=== PATIENT | male | born 1975 | race American Indian/Alaskan Native ===

== ENCOUNTER 2020-10-25 13:20 | Observation (INO) | payer MEDICARE ==
--- NOTE | 2020-10-25 14:35 | XRay Report ---
CHEST 2 VIEWS INDICATION / CLINICAL INFORMATION: cough. COMPARISON: None available. FINDINGS: SUPPORT DEVICES: None. HEART / MEDIASTINUM: No significant abnormality. LUNGS / PLEURA: Focal airspace disease in the right perihilar region No pneumothorax. ADDITIONAL FINDINGS: No significant additional findings. IMPRESSION: Focal airspace disease is seen in the right perihilar region Signer Name: Venkat Patricio MD FACLo Signed: 10/25/2020 2:30 PM Workstation Name: [id number]
[2020-10-25] MEDS ORDERED: ACETAMINOPHEN 325 MG TAB PO PRN (16:22)
[2020-10-25] MEDS ORDERED: SODIUM CHLORIDE 0.9% 1000 ML IV SOLN IV ONE (16:22)
--- NOTE | 2020-10-25 16:27 | Emergency Department Report ---
ED Fever HPI - General Chief Complaint: Fever Stated Complaint: COLD SYMPTOMS/CHILLS Time Seen by Provider: 10/25/20 13:33 ED Review of Systems ROS: Stated complaint: COLD SYMPTOMS/CHILLS Other details as noted in HPI ED Past Medical Hx - Social History Smoking Status: Current Some Day Smoker Substance Use Type: None ED Physical Exam - General Limitations: No Limitations ED Course Vital Signs 10/25/20 13:33 Temperature 102.2 F H Pulse Rate 115 H Respiratory 26 H Rate Blood Pressure 168/109 O2 Sat by Pulse 96 Oximetry Critical care attestation.: If time is entered above; I have spent that time in minutes in the direct care of this critically ill patient, excluding procedure time. ED Disposition Condition: Stable
--- NOTE | 2020-10-25 16:29 | Event Note ---
ED Screening Note ED Screening Note: 45-year-old -[place] male presents emerged department complaining of cough congestion coryza and fever sensation off and on for the past week presents emerged department for further valuation and treatment options. There is suspicion for for the coronavirus as the symptoms are vague and fluctuated His examination shows some rhonchi at to his right. Chest x-ray was obtained did show a focal deficit that coupled with his his vital signs will need to do a septic work-up This initial assessment/diagnostic orders/clinical plan/treatment(s) is/are subject to change based on patients health status, clinical progression and re- assessment by fellow clinical providers in the ED. Further treatment and workup at subsequent clinical providers discretion. Patient/guardian urged not to elope from the ED as their condition may be serious if not clinically assessed and managed. Initial orders include: Septic evaluation
[2020-10-25 17:28] LABS: Basophils # (Auto) 0.1 K/mm3 (0.0-0.1); Basophils % (Auto) 0.7 % (0.0-1.8); Eosinophils # (Auto) 0.3 K/mm3 (0.0-0.4); Eosinophils % (Auto) 3.2 % (0.0-4.3); Hematocrit 42.1 % (35.5-45.6); Hemoglobin 14.6 gm/dl (11.8-15.2); Lymphocytes # (Auto) 1.4 K/mm3 (1.2-5.4); Lymphocytes % (Auto) 13.4 % (13.4-35.0); Mean Corpuscular HGB Conc 35 % (32-34); Mean Corpuscular Volume 86 fl (84-94); Platelet Count 183 K/mm3 (140-440); Red Blood Count 4.88 M/mm3 (3.65-5.03); Red Cell Distribution Width 12.4 % (13.2-15.2)
[2020-10-25 17:53] LABS: Alanine Aminotransferase 19 units/L (7-56); Albumin 3.7 g/dL (3.9-5); BUN/Creatinine Ratio 8; Blood Urea Nitrogen 12 mg/dL (9-20); Calcium 8.5 mg/dL (8.4-10.2); Hemolysis Index 0
[2020-10-25] MEDS: HYDROmorphone 1 MG/1 ML INJ IV PRN (19:30)
[2020-10-25] MEDS ORDERED: SODIUM CHLORIDE 0.9% 1000 ML 3,000 ML ONE (19:37)
[2020-10-25] MEDS: AZITHROMYCIN/NS 500 MG/250 ML 500 MG/250 ML BAG IV SCH (19:37)
[2020-10-25] MEDS: cefTRIAXone/NS 2 GM/100 ML 2 GM/100 ML BAG IV SCH (19:37)
[2020-10-25] MEDS ORDERED: dexAMETHasone 4 MG/ML VIAL IV ONE (22:58)
--- NOTE | 2020-10-25 23:03 | Emergency Department Report ---
ED Fever HPI - General Chief Complaint: Fever Stated Complaint: COLD SYMPTOMS/CHILLS PUI?: No Time Seen by Provider: 10/25/20 22:53 Source: patient Exam Limitations: no limitations - History of Present Illness Initial Comments: Patient is a 45-year-old male that presents emergency room with complaints of cough, congestion, fever, body aches and chills, nausea and vomiting. Patient states the cough congestion been going on for 2 months. Patient states he was seen at [facility] 4 weeks ago and was given a cough syrup and his Covid was negative. Patient states he has not followed up with a primary care. Patient states he does not know the provider. Patient dates he has not had antibiotics in these 2 months. Patient states then 5 days ago he developed body aches, shortness of breath, nausea, vomiting, fever and a productive cough. Patient states the productive cough is a yellow sputum. Patient denies diarrhea. Patient denies loss of smell. Patient denies loss of taste. Patient denies chest pain. Patient states his body aches are 6 out of 10. Patient states his body aches are better with rest and worse with movement and exertion. Patient states he is taking [id number] cold remedies and Tylenol and ibuprofen. Patient denies recent travel. Patient denies recent international travel. Patient denies exposure to the novel coronavirus. Patient denies sick contacts. Patient denies diarrhea. Patient denies coming in contact with anybody with symptoms of the novel coronavirus. Timing/Duration: constant Fever Severity/Quality: greater than 102 F Fever Therapy EXPERIMENTAL TECHNICIAN: cold remedies, Ibuprofen, Tylenol Associated Symptoms: cough, muscle aches, nausea/vomiting, shortness of breath. denies: abdominal pain, chest pain, confusion, diaphoresis, headache, rash, sore throat, stiff neck, syncope, weakness ED Review of Systems ROS: Stated complaint: COLD SYMPTOMS/CHILLS Other details as noted in HPI Constitutional: chills, fever, malaise. denies: diaphoresis, weakness Eyes: denies: eye pain, eye discharge, vision change ENT: denies: ear pain, throat pain Respiratory: see HPI, cough, shortness of breath. denies: wheezing Cardiovascular: denies: chest pain, palpitations Endocrine: no symptoms reported Gastrointestinal: nausea, vomiting. denies: abdominal pain, diarrhea Genitourinary: denies: urgency, dysuria Musculoskeletal: denies: back pain, joint swelling, arthralgia Skin: denies: rash, lesions Neurological: denies: headache, weakness, paresthesias Psychiatric: denies: anxiety, depression Hematological/Lymphatic: denies: easy bleeding, easy bruising ED Past Medical Hx - Past Medical History Previous Medical History?: No - Surgical History Past Surgical History?: No - Family History Family history: no significant - Social History Smoking Status: Current Some Day Smoker Substance Use Type: None ED Physical Exam - General Limitations: No Limitations General appearance: alert, in no apparent distress - Head Head exam: Present: atraumatic, normocephalic - Eye Eye exam: Present: normal appearance - ENT ENT exam: Present: mucous membranes moist - Neck Neck exam: Present: normal inspection - Respiratory Respiratory exam: Present: normal lung sounds bilaterally. Absent: respiratory distress - Cardiovascular Cardiovascular Exam: Present: regular rate, normal rhythm. Absent: systolic murmur, diastolic murmur, rubs, gallop - GI/Abdominal GI/Abdominal exam: Present: soft, normal bowel sounds. Absent: distended, tenderness, guarding - Rectal Rectal exam: Present: deferred - Extremities Exam Extremities exam: Present: normal inspection - Back Exam Back exam: Present: normal inspection - Neurological Exam Neurological exam: Present: alert, oriented X3 - Psychiatric Psychiatric exam: Present: normal affect, normal mood - Skin Skin exam: Present: warm, dry, intact, normal color. Absent: rash ED Course Vital Signs 10/25/20 13:33 Temperature 102.2 F H Pulse Rate 115 H Respiratory 26 H Rate Blood Pressure 168/109 O2 Sat by Pulse 96 Oximetry - Reevaluation(s) Reevaluation #1: After initial valuation, I ambulated the patient. The patient became hypoxic. . Patient dropped to 88. Patient's initial saturation was 94%. Patient placed in a private room and connected to a laboratory monitor. 10/25/20 23:05 Reevaluation #2: I discussed all results with patient. I discussed plan of care with patient. Patient agrees with plan of care and admission. Patient to be admitted to the hospitalist service. 10/25/20 23:17 ED Medical Decision Making - Lab Data Result diagrams: 10/25/20 16:30 10/25/20 16:30 - Radiology Data Radiology results: report reviewed, image reviewed interpreted by me: Chest x-ray: Bilateral pneumonia, no pneumothorax, no foreign body, no osseous findings. CHEST 2 VIEWS INDICATION / CLINICAL INFORMATION: cough. COMPARISON: None available. FINDINGS: SUPPORT DEVICES: None. HEART / MEDIASTINUM: No significant abnormality. LUNGS / PLEURA: Focal airspace disease in the right perihilar region No pneumot horax. ADDITIONAL FINDINGS: No significant additional findings. IMPRESSION: Focal airspace disease is seen in the right perihilar region - Medical Decision Making Patient is a 45-year-old male that presents emergency room with complaints of cough, congestion, nausea, vomiting, fever, body aches, shortness of breath. Patient had labs done which were essentially unremarkable except for dehydration on his chemistry. Patient had chest x-ray which showed bilateral pneumonia. After the results were done and initial evaluation was done, I ambulated the patient and the patient became hypoxic early in ambulation. Patient was then transferred to a private room and placed on a laboratory monitor. Patient placed on oxygen. Patient given antibiotics and fluids early in the ER stay. Patient was then given Decadron. Patient meets criteria for admission. Patient admitted to the hospital service for further evaluation and treatment. - Differential Diagnosis Fever, Covid, URI, pneumonia, cough, S OB Critical Care Time: Yes Critical care time in (mins) excluding proc time.: 35 Critical care attestation.: If time is entered above; I have spent that time in minutes in the direct care of this critically ill patient, excluding procedure time. Critical Care Time: 35 minutes ED Disposition Clinical Impression: Person under investigation for COVID-19, Cough, Hypoxia, SOB (shortness of breath), SIRS (systemic inflammatory response syndrome) Respiratory failure Qualifiers: Chronicity: acute Respiratory failure complication: hypoxia Qualified Code(s): J96.01 - Acute respiratory failure with hypoxia Pneumonia Qualifiers: Pneumonia type: due to unspecified organism Laterality: bilateral Lung location: unspecified part of lung Qualified Code(s): J18.9 - Pneumonia, unspecified organism Disposition: OP ADMIT IP TO THIS HOSP Is pt being admited?: Yes Does the pt Need Aspirin: No Condition: Critical Instructions: Bacterial Pneumonia (ED) Time of Disposition: 23:17
[2020-10-26] MEDS ORDERED: MORPHINE 2 MG/1 ML INJ IV PRN (00:56)
[2020-10-26] MEDS ORDERED: MAGNESIUM HYDROXIDE (MOM) ORAL LIQD UDC PO PRN (00:56)
[2020-10-26] MEDS ORDERED: ONDANSETRON 4 MG/2 ML INJ IV PRN (00:56)
[2020-10-26] MEDS ORDERED: ACETAMINOPHEN 325 MG TAB PO PRN (00:56)
[2020-10-26] MEDS: guaiFENesin 100 MG/5 ML ORAL LIQD PO PRN ×2 (01:04→21:33)
[2020-10-26] MEDS: HYDROmorphone 1 MG/1 ML INJ IV PRN (01:04)
--- NOTE | 2020-10-26 01:06 | History and Physical Report ---
History of Present Illness Date of examination: 10/26/20 Date of admission: 10/25/20 23:18 Chief complaint: Cough Shortness of Breath History of present illness: 45-year-old -[place] male presenting to the emergency room today complaining of cough, fever, generalized body aches and pain, nausea and vomiting which has been ongoing for the past few days. Patient indicates that he has had some cough with some congestion for about 8 weeks. He was seen at [facility] few weeks ago and given some cough syrup without any significant improvement. His Covid test at that time also was said to be negative. Over the past few days patient has been having generalized body aches and pain, cough productive of some yellowish sputum, nausea and vomiting and shortness of breath. He denies any chest pain, no abdominal pain and no diarrhea. Patient denies any sick contacts and no recent travel, denies any contact with anyone with COVID-19. He has taken some [id number] pain medication including Tylenol and ibuprofen without any significant improvement Work-up in the emergency room today reveals:Focal airspace disease in the right perihilar region Patient is being admitted with pneumonia and will also rule out COVID-19. Past History Past Medical History: No medical history Past Surgical History: No surgical history Social history: smoking (Current daily smoker) Family history: no significant family history Medications and Allergies Allergies Allergy/AdvReac Type Severity Reaction Status Date / Time No Known Allergies Allergy Verified 10/25/20 13:36 Active Meds: Active Medications Acetaminophen (Acetaminophen 325 Mg Tab) 650 mg PO Q6H PRN PRN Reason: Pain, Mild (1-3) Acetaminophen (Acetaminophen 325 Mg Tab) 650 mg PO Q4H PRN PRN Reason: Pain MILD(1-3)/Fever >100.5/ECHOLS Enoxaparin Sodium (Enoxaparin 40 Mg/0.4 Ml Inj) 40 mg SUB-Q QDAY@2200 JURGEN; Protocol Guaifenesin (Guaifenesin 100 Mg/5 Ml Oral Liqd) 200 mg PO Q4H PRN PRN Reason: Cough Hydromorphone HCl (Hydromorphone 1 Mg/1 Ml Inj) 0.25 mg IV Q4H PRN PRN Reason: Pain, Moderate (4-6) Last Admin: 10/25/20 19:30 Dose: 0.25 mg Documented by: Ceftriaxone Sodium (Rocephin/Ns 2 Gm/100 Ml) 2 gm in 100 mls @ 200 mls/hr IV Q24H JURGEN; Protocol Last Admin: 10/25/20 19:37 Dose: 200 mls/hr Documented by: Azithromycin (Zithromax/Ns) 500 mg in 250 mls @ 250 mls/hr IV Q24H JURGEN; Protocol Last Admin: 10/25/20 19:37 Dose: 250 mls/hr Documented by: Magnesium Hydroxide (Magnesium Hydroxide (Mom) Oral Liqd Udc) 30 ml PO Q4H PRN PRN Reason: Constipation Morphine Sulfate (Morphine 2 Mg/1 Ml Inj) 2 mg IV Q4H PRN PRN Reason: Pain, Moderate (4-6) Ondansetron HCl (Ondansetron 4 Mg/2 Ml Inj) 4 mg IV Q8H PRN PRN Reason: Nausea And Vomiting Sodium Chloride (Sodium Chloride 0.9% 10 Ml Flush Syringe) 10 ml IV BID JURGEN Sodium Chloride (Sodium Chloride 0.9% 10 Ml Flush Syringe) 10 ml IV PRN PRN PRN Reason: LINE FLUSH Review of Systems Constitutional: fever, chills Ears, nose, mouth and throat: nasal congestion, no sore throat Cardiovascular: no chest pain, no palpitations Respiratory: cough, shortness of breath Gastrointestinal: nausea, vomiting, no abdominal pain, no diarrhea Genitourinary Male: no dysuria, no hematuria, no flank pain, no nocturia Musculoskeletal: no neck pain, no low back pain Integumentary: no rash, no pruritis Neurological: no headaches, no confusion Psychiatric: no anxiety, no depression Exam - Constitutional Vitals: Temp Pulse Resp BP Pulse Ox 99.8 F H 91 H 24 156/87 99 10/26/20 00:29 10/26/20 00:29 10/26/20 00:29 10/26/20 00:29 10/26/20 00:29 General appearance: Present: no acute distress, well-nourished - EENT Eyes: Present: PERRL, EOM intact. Absent: scleral icterus ENT: hearing intact, clear oral mucosa, dentition normal - Neck Neck: Present: supple, normal ROM - Respiratory Respiratory effort: normal Respiratory: right: diminished - Cardiovascular Rhythm: regular Heart Sounds: Present: S1 & S2. Absent: gallop, systolic murmur, diastolic murmur, rub, click - Extremities Extremities: no ischemia, pulses intact, pulses symmetrical, No edema, normal temperature, normal color, Full ROM Peripheral Pulses: within normal limits - Abdominal General gastrointestinal: Present: soft, non-tender, non-distended, normal bowel sounds. Absent: mass - Integumentary Integumentary: Present: clear, warm, dry. Absent: rash - Musculoskeletal Musculoskeletal: strength equal bilaterally - Psychiatric Psychiatric: appropriate mood/affect, intact judgment & insight, memory intact, cooperative - Neurologic Neurologic: CNII-XII intact, no focal deficits, moves all extremities Results - Labs CBC & Chem 7: 10/25/20 16:30 10/25/20 16:30 Labs: Abnormal lab results 10/25/20 10/25/20 Range/Units 16:30 16:30 MCHC 35 H (32-34) % RDW 12.4 L (13.2-15.2) % [place] % (Auto) 10.0 H (0.0-7.3) % [place] # (Auto) 1.0 H (0.0-0.8) K/mm3 Seg Neutrophils % 72.7 H (40.0-70.0) % Sodium 136 L (137-145) mmol/L Creatinine 1.5 H (0.8-1.3) mg/dL Glucose 102 H (75-100) mg/dL Albumin 3.7 L (3.9-5) g/dL Assessment and Plan - Patient Problems (1) Pneumonia Current Visit: Yes Status: Acute Qualifiers: Pneumonia type: due to unspecified organism Laterality: bilateral Lung location: unspecified part of lung Qualified Code(s): J18.9 - Pneumonia, unspecified organism Plan to address problem: Patient commenced on empiric IV antibiotics. We will await culture results. (2) Person under investigation for COVID-19 Current Visit: Yes Status: Acute Plan to address problem: Patient placed on isolation precautions. We await COVID-19 testing. Consult placed to infectious disease for evaluation. (3) DVT prophylaxis Current Visit: Yes Status: Acute Plan to address problem: Patient placed on subcutaneous Lovenox. (4) Full code status Current Visit: Yes Status: Acute Plan to address problem: Patient is a full code.
[2020-10-26 06:51] LABS: Bilirubin,Urine NEG (Negative); Blood,Urine NEG (Negative); Color,Urine Straw (Yellow); Protein,Urine <15 mg/dL mg/dL (Negative); RBC,Urine < 1.0 /HPF (0.0-6.0); Urobilinogen,Urine < 2.0 mg/dL (<2.0); WBC,Urine < 1.0 /HPF (0.0-6.0)
--- NOTE | 2020-10-26 10:47 | Progress Note ---
Assessment and Plan Assessment and plan: - Patient Problems --Pneumonia Current Visit: Yes Status: Acute Plan to address problem: Patient commenced on empiric IV antibiotics. We will await culture results. --Person under investigation for COVID-19 Current Visit: Yes Status: Acute Plan to address problem: Patient placed on isolation precautions. We await COVID-19 testing. Consult placed to infectious disease for evaluation. --Full code status Current Visit: Yes Status: Acute . Plan to address problem: Patient is a full code. --Obesity; BMI 30.1 Patient needs weight reduction when medically stable --ongoing tobacco use Smoking cessation counseling. Nicotine patch as needed -- DVT prophylaxis Current Visit: Yes Status: Acute Plan to address problem: Patient placed on subcutaneous Lovenox. Closely monitor the patient and adjust the management as needed Follow COVID-19 work-up Plan of care reviewed with the patient and his nurse History Interval history: I have seen and examined the patient at the bedside this morning Strict isolation precautions and PPE protocols followed per COVID-19 guidelines Patient feels slightly better complains of some cough Awaiting valerio PCR test report Vital signs noted Hospitalist Physical - Constitutional Vitals: Temp Pulse Resp BP Pulse Ox 97.1 F L 80 20 138/82 96 10/26/20 04:25 10/26/20 04:25 10/26/20 04:25 10/26/20 04:25 10/26/20 04:25 General appearance: Present: no acute distress, well-nourished - EENT Eyes: Present: PERRL, EOM intact - Neck Neck: Present: supple, normal ROM - Respiratory Respiratory effort: normal Respiratory: bilateral: diminished, rhonchi, negative: rales, wheezing - Cardiovascular Rhythm: regular Heart Sounds: Present: S1 & S2 - Extremities Extremities: no ischemia, No edema - Abdominal General gastrointestinal: soft, non-tender, non-distended, normal bowel sounds - Integumentary Integumentary: Present: clear, warm - Psychiatric Psychiatric: appropriate mood/affect, cooperative - Neurologic Neurologic: CNII-XII intact, moves all extremities Results - Labs CBC & Chem 7: 10/25/20 16:30 10/25/20 16:30 Labs: Laboratory Last Values WBC 10.2 K/mm3 (4.5-11.0) 10/25/20 16:30 RBC 4.88 M/mm3 (3.65-5.03) 10/25/20 16:30 Hgb 14.6 gm/dl (11.8-15.2) 10/25/20 16:30 Hct 42.1 % (35.5-45.6) 10/25/20 16:30 MCV 86 fl (84-94) 10/25/20 16:30 MCH 30 pg (28-32) 10/25/20 16:30 MCHC 35 % (32-34) H 10/25/20 16:30 RDW 12.4 % (13.2-15.2) L 10/25/20 16:30 Plt Count 183 K/mm3 (140-440) 10/25/20 16:30 Lymph % (Auto) 13.4 % (13.4-35.0) 10/25/20 16:30 [place] % (Auto) 10.0 % (0.0-7.3) H 10/25/20 16:30 Eos % (Auto) 3.2 % (0.0-4.3) 10/25/20 16:30 Baso % (Auto) 0.7 % (0.0-1.8) 10/25/20 16:30 Lymph # (Auto) 1.4 K/mm3 (1.2-5.4) 10/25/20 16:30 [place] # (Auto) 1.0 K/mm3 (0.0-0.8) H 10/25/20 16:30 Eos # (Auto) 0.3 K/mm3 (0.0-0.4) 10/25/20 16:30 Baso # (Auto) 0.1 K/mm3 (0.0-0.1) 10/25/20 16:30 Seg Neutrophils % 72.7 % (40.0-70.0) H 10/25/20 16:30 Seg Neutrophils # 7.4 K/mm3 (1.8-7.7) 10/25/20 16:30 Sodium 136 mmol/L (137-145) L 10/25/20 16:30 Potassium 4.2 mmol/L (3.6-5.0) 10/25/20 16:30 Chloride 100.8 mmol/L (98-107) 10/25/20 16:30 Carbon Dioxide 30 mmol/L (22-30) 10/25/20 16:30 Anion Gap 9 mmol/L 10/25/20 16:30 BUN 12 mg/dL (9-20) 10/25/20 16:30 Creatinine 1.5 mg/dL (0.8-1.3) H 10/25/20 16:30 Estimated GFR > 60 ml/min 10/25/20 16:30 BUN/Creatinine Ratio 8 % 10/25/20 16:30 Glucose 102 mg/dL (75-100) H 10/25/20 16:30 Calcium 8.5 mg/dL (8.4-10.2) 10/25/20 16:30 Total Bilirubin 0.40 mg/dL (0.1-1.2) 10/25/20 16:30 AST 20 units/L (5-40) 10/25/20 16:30 ALT 19 units/L (7-56) 10/25/20 16:30 Alkaline Phosphatase 55 units/L (35-129) 10/25/20 16:30 Total Protein 7.3 g/dL (6.3-8.2) 10/25/20 16:30 Albumin 3.7 g/dL (3.9-5) L 10/25/20 16:30 Albumin/Globulin Ratio 1.0 % 10/25/20 16:30 Urine Color Straw (Yellow) 10/26/20 06:00 Urine Turbidity Clear (Clear) 10/26/20 06:00 Urine pH 7.0 (5.0-7.0) 10/26/20 06:00 Ur Specific [place] 1.005 (1.003-1.030) 10/26/20 06:00 Urine Protein <15 mg/dl mg/dL (Negative) 10/26/20 06:00 Urine Glucose (UA) 50 mg/dL (Negative) 10/26/20 06:00 Urine Ketones Neg mg/dL (Negative) 10/26/20 06:00 Urine Blood Neg (Negative) 10/26/20 06:00 Urine Nitrite Neg (Negative) 10/26/20 06:00 Urine Bilirubin Neg (Negative) 10/26/20 06:00 Urine Urobilinogen < 2.0 mg/dL (<2.0) 10/26/20 06:00 Ur Leukocyte Esterase Neg (Negative) 10/26/20 06:00 Urine WBC (Auto) < 1.0 /HPF (0.0-6.0) 10/26/20 06:00 Urine RBC (Auto) < 1.0 /HPF (0.0-6.0) 10/26/20 06:00 U Epithel Cells (Auto) < 1.0 /HPF (0-13.0) 10/26/20 06:00 Blood Type O POSITIVE 10/25/20 17:12 Antibody Screen Negative 10/25/20 17:12 Microbiology: Microbiology 10/25/20 16:30 Peripheral/Venous Blood Culture - Preliminary Culture in Progress 10/25/20 16:30 Peripheral/Venous Blood Culture - Preliminary Culture in Progress [place]/IV: Voiding Method Toilet Active Medications - Current Medications Current Medications: Generic Name Dose Route Start Last Admin Trade Name Freq PRN Reason Stop Dose Admin Acetaminophen 650 mg 10/26/20 00:56 Acetaminophen 325 Mg Tab PO Q4H PRN Pain MILD(1-3)/Fever >100.5/ECHOLS Enoxaparin Sodium 40 mg 10/26/20 22:00 Enoxaparin 40 Mg/0.4 Ml Inj SUB-Q QDAY@2200 [facility] Protocol Guaifenesin 200 mg 10/26/20 00:41 10/26/20 01:04 Guaifenesin 100 Mg/5 Ml Oral Liqd PO 200 mg Q4H PRN Administration Cough Ceftriaxone Sodium 2 gm in 100 mls @ 200 mls/hr 10/25/20 17:00 10/25/20 19:37 Rocephin/Ns 2 Gm/100 Ml IV 200 mls/hr Q24H JURGEN Administration Protocol Azithromycin 500 mg in 250 mls @ 250 mls/hr 10/25/20 18:00 10/25/20 19:37 Zithromax/Ns IV 250 mls/hr Q24H JURGEN Administration Protocol Magnesium Hydroxide 30 ml 10/26/20 00:56 Magnesium Hydroxide (Mom) Oral Liqd Udc PO Q4H PRN Constipation Morphine Sulfate 2 mg 10/26/20 00:56 Morphine 2 Mg/1 Ml Inj IV Q4H PRN Pain, Moderate (4-6) Ondansetron HCl 4 mg 10/26/20 00:56 Ondansetron 4 Mg/2 Ml Inj IV Q8H PRN Nausea And Vomiting Sodium Chloride 10 ml 10/26/20 10:00 10/26/20 09:18 Sodium Chloride 0.9% 10 Ml Flush Syringe IV 10 ml BID JURGEN Administration Sodium Chloride 10 ml 10/26/20 00:56 Sodium Chloride 0.9% 10 Ml Flush Syringe IV PRN PRN LINE FLUSH
--- NOTE | 2020-10-26 15:21 | Consultation ---
History of Present Illness - Reason for Consult Consult date: 10/26/20 - History of Present Illness 45-year-old male past medical history of no significance presented to hospital complaining of cough, fevers, myalgias, nausea and vomiting. This began a couple days prior to admission. He also notes mild cough and congestion for 8 weeks previously. He was recently seen at an outside hospital a few weeks ago and given cough syrup which did not help. He notes a previous negative Covid test. His symptoms of gotten worse over the past couple days. Febrile to 102.2 with a white count of 10.2. Covid testing negative. GFR greater than 60. Blood cultures pending currently on ceftriaxone azithromycin. Imaging personally reviewed: Chest x-ray: Airspace disease in the right perihilar region Review of Systems: Bold if positive, otherwise negative General: fevers, chills, rigors HEENT: visual disturbance, diplopia, eye pain Respiratory: cough, sputum, hemoptysis, shortness of breath Cardiovascular: chest pain, syncope Gastrointestinal: nausea, vomiting, diarrhea, abdominal pain Genitourinary: dysuria, hematuria, flank pain Musculoskeletal: neck pain, back pain, joint pain, edema Neurologic: headaches, seizures Hematologic: easy bruising or bleeding Endocrine: night sweats, acute weight loss Skin: rash, jaundice, redness Psychiatric: suicidal, homicidal ideation Past History Past Medical History: No medical history Past Surgical History: No surgical history Social history: smoking (Current daily smoker) Family history: no significant family history Medications and Allergies Allergies Allergy/AdvReac Type Severity Reaction Status Date / Time No Known Allergies Allergy Verified 10/25/20 13:36 Home Medications Medication Instructions Recorded Confirmed Last Taken Type No Known Home Medications [No 10/26/20 10/26/20 Unknown History Reported Home Medications] Active Meds: Active Medications Acetaminophen (Acetaminophen 325 Mg Tab) 650 mg PO Q4H PRN PRN Reason: Pain MILD(1-3)/Fever >100.5/ECHOLS Enoxaparin Sodium (Enoxaparin 40 Mg/0.4 Ml Inj) 40 mg SUB-Q QDAY@2200 [facility]; Protocol Guaifenesin (Guaifenesin 100 Mg/5 Ml Oral Liqd) 200 mg PO Q4H PRN PRN Reason: Cough Last Admin: 10/26/20 01:04 Dose: 200 mg Documented by: Ceftriaxone Sodium (Rocephin/Ns 2 Gm/100 Ml) 2 gm in 100 mls @ 200 mls/hr IV Q24H [facility]; Protocol Last Admin: 10/25/20 19:37 Dose: 200 mls/hr Documented by: Azithromycin (Zithromax/Ns) 500 mg in 250 mls @ 250 mls/hr IV Q24H [facility]; Protocol Last Admin: 10/25/20 19:37 Dose: 250 mls/hr Documented by: Magnesium Hydroxide (Magnesium Hydroxide (Mom) Oral Liqd Udc) 30 ml PO Q4H PRN PRN Reason: Constipation Morphine Sulfate (Morphine 2 Mg/1 Ml Inj) 2 mg IV Q4H PRN PRN Reason: Pain, Moderate (4-6) Ondansetron HCl (Ondansetron 4 Mg/2 Ml Inj) 4 mg IV Q8H PRN PRN Reason: Nausea And Vomiting Sodium Chloride (Sodium Chloride 0.9% 10 Ml Flush Syringe) 10 ml IV BID [facility] Last Admin: 10/26/20 09:18 Dose: 10 ml Documented by: Sodium Chloride (Sodium Chloride 0.9% 10 Ml Flush Syringe) 10 ml IV PRN PRN PRN Reason: LINE FLUSH Physical Examination - Physical Exam Narrative exam: Physical Exam: Constitutional: Alert, cooperative. No acute distress Head, Ears, Nose: Normocephalic, atraumatic. External ears, nose normal Eyes: Conjunctivae/corneas clear. No icterus. No ptosis. Neck: Supple, no meningeal signs Oral: dentition fair, no thrush Cardiovascular: S1, S2 normal. Respiratory: Good air entry, clear to auscultation bilaterally GI: Soft, non-tender; bowel sounds normal. No peritoneal signs. Musculoskeletal: No pedal edema, no cyanosis. Skin: No rash or abscess Hem/Lymphatic: No palpable cervical or supraclavicular nodes. No lymphangitis Psych: Mood ok. Affect normal Neurological: Awake, alert, oriented. No gross abnormality - Constitutional Vitals: Vital Signs Temp Pulse Resp BP Pulse Ox 97.8 F 75 20 141/84 97 10/26/20 12:12 10/26/20 12:12 10/26/20 12:12 10/26/20 12:12 10/26/20 12:12 Temperature -Last 24 Hours Temperature 97.8 F Temperature 97.1 F Temperature 99.8 F Results - Labs CBC & Chem 7: 10/25/20 16:30 10/25/20 16:30 Labs: Abnormal lab results 10/25/20 10/25/20 Range/Units 16:30 16:30 MCHC 35 H (32-34) % RDW 12.4 L (13.2-15.2) % Hart % (Auto) 10.0 H (0.0-7.3) % Hart # (Auto) 1.0 H (0.0-0.8) K/mm3 Seg Neutrophils % 72.7 H (40.0-70.0) % Sodium 136 L (137-145) mmol/L Creatinine 1.5 H (0.8-1.3) mg/dL Glucose 102 H (75-100) mg/dL Albumin 3.7 L (3.9-5) g/dL Assessment and Plan Cultures: Blood culture pending A/P: 45-year-old male no medical history admitted with pneumonia #Right-sided pneumonia: Awaiting procalcitonin. Not hypoxic. #Obesity #KIRBY versus CKD: Unclear baseline Recs: -Continue empiric ceftriaxone and azithromycin -Follow-up procalcitonin -Monitor renal function Thank you for the consult, we will continue to follow. MD [facility] ([facility] O: [phone] F: [phone]
[2020-10-26] MEDS: cefTRIAXone/NS 2 GM/100 ML 2 GM/100 ML BAG IV SCH (16:23)
[2020-10-26] MEDS: AZITHROMYCIN/NS 500 MG/250 ML 500 MG/250 ML BAG IV SCH (17:30)
[2020-10-26] MEDS ORDERED: ENOXAPARIN 40 MG/0.4 ML INJ SUB-Q SCH (22:00)
[2020-10-27 07:51] LABS: Basophils % (Auto) 0.4 % (0.0-1.8); Eosinophils # (Auto) 0.2 K/mm3 (0.0-0.4); Eosinophils % (Auto) 1.7 % (0.0-4.3); Hematocrit 41.3 % (35.5-45.6); Lymphocytes % (Auto) 18.8 % (13.4-35.0); Mean Corpuscular HGB Conc 34 % (32-34); Mean Corpuscular Volume 86 fl (84-94); Monocytes # (Auto) 0.7 K/mm3 (0.0-0.8); Monocytes % (Auto) 6.7 % (0.0-7.3); Platelet Count 207 K/mm3 (140-440); Red Blood Count 4.83 M/mm3 (3.65-5.03); Red Cell Distribution Width 12.5 % (13.2-15.2)
[2020-10-27 07:59] LABS: INR 0.96 (0.87-1.13)
[2020-10-27 08:04] LABS: BUN/Creatinine Ratio 10; Blood Urea Nitrogen 12 mg/dL (9-20); Calcium 8.1 mg/dL (8.4-10.2); Hemolysis Index 0
--- NOTE | 2020-10-27 08:31 | Progress Note ---
Assessment and Plan Assessment and plan: --Possible community-acquired pneumonia Current Visit: Yes Status: Acute Plan to address problem: Continue empiric antibiotics, follow cultures Check procalcitonin ID following --PUI /COVID-19 negative Current Visit: Yes Status: Acute Plan to address problem: Pablo PCR test negative, DC isolation --SIRS: With organ dysfunction fever, tachycardia, KIRBY Continue empiric antibiotics Follow cultures --Acute kidney injury; present on admission Current Visit: Yes Status: Acute. Plan to address problem: Vasomotor nephropathy, avoid nephrotoxins Renal function significantly improved --Obesity; BMI 30.1 Current Visit: Yes Status: Acute. Plan to address problem: Patient needs weight reduction when medically stable --ongoing tobacco use Current Visit: Yes Status: Acute. Plan to address problem: Smoking cessation counseling. Nicotine patch as needed -- DVT prophylaxis Current Visit: Yes Status: Acute Plan to address problem: Patient placed on subcutaneous Lovenox. --Full code status Current Visit: Yes Status: Acute . Plan to address problem: Patient is a full code. Closely monitor the patient and adjust management as needed Hospitalist Physical - Constitutional Vitals: Temp Pulse Resp BP Pulse Ox 98.2 F 73 18 154/79 97 10/26/20 21:25 10/26/20 21:25 10/26/20 23:00 10/26/20 21:25 10/26/20 23:00 General appearance: Present: no acute distress, well-nourished Results - Labs CBC & Chem 7: 10/27/20 07:23 10/27/20 07:23 Labs: Laboratory Last Values WBC 10.8 K/mm3 (4.5-11.0) 10/27/20 07:23 RBC 4.83 M/mm3 (3.65-5.03) 10/27/20 07:23 Hgb 14.0 gm/dl (11.8-15.2) 10/27/20 07:23 Hct 41.3 % (35.5-45.6) 10/27/20 07:23 MCV 86 fl (84-94) 10/27/20 07:23 MCH 29 pg (28-32) 10/27/20 07:23 MCHC 34 % (32-34) 10/27/20 07:23 RDW 12.5 % (13.2-15.2) L 10/27/20 07:23 Plt Count 207 K/mm3 (140-440) 10/27/20 07:23 Lymph % (Auto) 18.8 % (13.4-35.0) 10/27/20 07:23 Runnels % (Auto) 6.7 % (0.0-7.3) 10/27/20 07:23 Eos % (Auto) 1.7 % (0.0-4.3) 10/27/20 07:23 Baso % (Auto) 0.4 % (0.0-1.8) 10/27/20 07:23 Lymph # (Auto) 2.0 K/mm3 (1.2-5.4) 10/27/20 07:23 Runnels # (Auto) 0.7 K/mm3 (0.0-0.8) 10/27/20 07:23 Eos # (Auto) 0.2 K/mm3 (0.0-0.4) 10/27/20 07:23 Baso # (Auto) 0.0 K/mm3 (0.0-0.1) 10/27/20 07:23 Seg Neutrophils % 72.4 % (40.0-70.0) H 10/27/20 07:23 Seg Neutrophils # 7.8 K/mm3 (1.8-7.7) H 10/27/20 07:23 PT 12.7 Sec. (12.2-14.9) 10/27/20 07:23 INR 0.96 (0.87-1.13) 10/27/20 07:23 Sodium 141 mmol/L (137-145) 10/27/20 07:23 Potassium 4.3 mmol/L (3.6-5.0) 10/27/20 07:23 Chloride 105.6 mmol/L (98-107) 10/27/20 07:23 Carbon Dioxide 30 mmol/L (22-30) 10/27/20 07:23 Anion Gap 10 mmol/L 10/27/20 07:23 BUN 12 mg/dL (9-20) 10/27/20 07:23 Creatinine 1.2 mg/dL (0.8-1.3) 10/27/20 07:23 Estimated GFR > 60 ml/min 10/27/20 07:23 BUN/Creatinine Ratio 10 % 10/27/20 07:23 Glucose 119 mg/dL (75-100) H 10/27/20 07:23 Calcium 8.1 mg/dL (8.4-10.2) L 10/27/20 07:23 Total Bilirubin 0.40 mg/dL (0.1-1.2) 10/25/20 16:30 AST 20 units/L (5-40) 10/25/20 16:30 ALT 19 units/L (7-56) 10/25/20 16:30 Alkaline Phosphatase 55 units/L (35-129) 10/25/20 16:30 Total Protein 7.3 g/dL (6.3-8.2) 10/25/20 16:30 Albumin 3.7 g/dL (3.9-5) L 10/25/20 16:30 Albumin/Globulin Ratio 1.0 % 10/25/20 16:30 Urine Color Straw (Yellow) 10/26/20 06:00 Urine Turbidity Clear (Clear) 10/26/20 06:00 Urine pH 7.0 (5.0-7.0) 10/26/20 06:00 Ur Specific Tyner 1.005 (1.003-1.030) 10/26/20 06:00 Urine Protein <15 mg/dl mg/dL (Negative) 10/26/20 06:00 Urine Glucose (UA) 50 mg/dL (Negative) 10/26/20 06:00 Urine Ketones Neg mg/dL (Negative) 10/26/20 06:00 Urine Blood Neg (Negative) 10/26/20 06:00 Urine Nitrite Neg (Negative) 10/26/20 06:00 Urine Bilirubin Neg (Negative) 10/26/20 06:00 Urine Urobilinogen < 2.0 mg/dL (<2.0) 10/26/20 06:00 Ur Leukocyte Esterase Neg (Negative) 10/26/20 06:00 Urine WBC (Auto) < 1.0 /HPF (0.0-6.0) 10/26/20 06:00 Urine RBC (Auto) < 1.0 /HPF (0.0-6.0) 10/26/20 06:00 U Epithel Cells (Auto) < 1.0 /HPF (0-13.0) 10/26/20 06:00 Coronavirus (PCR) Negative (Negative) 10/26/20 Unknown Blood Type O POSITIVE 10/25/20 17:12 Antibody Screen Negative 10/25/20 17:12 Microbiology: Microbiology 10/25/20 16:30 Peripheral/Venous Blood Culture - Preliminary NO GROWTH AFTER 24 HOURS 10/25/20 16:30 Peripheral/Venous Blood Culture - Preliminary NO GROWTH AFTER 24 HOURS Aguillon/IV: Voiding Method Toilet Active Medications - Current Medications Current Medications: Generic Name Dose Route Start Last Admin Trade Name Freq PRN Reason Stop Dose Admin Acetaminophen 650 mg 10/26/20 00:56 Acetaminophen 325 Mg Tab PO Q4H PRN Pain MILD(1-3)/Fever >100.5/ECHOLS Enoxaparin Sodium 40 mg 10/26/20 22:00 10/26/20 21:32 Enoxaparin 40 Mg/0.4 Ml Inj SUB-Q 40 mg QDAY@2200 [facility] Administration Protocol Guaifenesin 200 mg 10/26/20 00:41 10/26/20 21:33 Guaifenesin 100 Mg/5 Ml Oral Liqd PO 200 mg Q4H PRN Administration Cough Ceftriaxone Sodium 2 gm in 100 mls @ 200 mls/hr 10/25/20 17:00 10/26/20 16:23 Rocephin/Ns 2 Gm/100 Ml IV 200 mls/hr Q24H [facility] Administration Protocol Azithromycin 500 mg in 250 mls @ 250 mls/hr 10/25/20 18:00 10/26/20 17:30 Zithromax/Ns IV 250 mls/hr Q24H [facility] Administration Protocol Magnesium Hydroxide 30 ml 10/26/20 00:56 Magnesium Hydroxide (Mom) Oral Liqd Udc PO Q4H PRN Constipation Morphine Sulfate 2 mg 10/26/20 00:56 10/26/20 22:47 Morphine 2 Mg/1 Ml Inj IV 2 mg Q4H PRN Administration Pain, Moderate (4-6) Ondansetron HCl 4 mg 10/26/20 00:56 Ondansetron 4 Mg/2 Ml Inj IV Q8H PRN Nausea And Vomiting Sodium Chloride 10 ml 10/26/20 10:00 10/26/20 21:32 Sodium Chloride 0.9% 10 Ml Flush Syringe IV 10 ml BID [facility] Administration Sodium Chloride 10 ml 10/26/20 00:56 Sodium Chloride 0.9% 10 Ml Flush Syringe IV PRN PRN LINE FLUSH
[2020-10-27] MEDS ORDERED: AZITHROMYCIN 250 MG TAB PO SCH (11:00)
[2020-10-27] MEDS: guaiFENesin 100 MG/5 ML ORAL LIQD PO PRN (11:46)
--- NOTE | 2020-10-27 13:17 | Progress Note ---
Assessment and Plan Cultures: Blood culture pending COVID-19 negative A/P: 45-year-old male no medical history admitted with pneumonia #Right-sided pneumonia: Procalcitonin normal, more likely to be viral pneumonia. Not hypoxic. #Obesity #KIRBY versus CKD: Unclear baseline Recs: -Procalcitonin normal, okay to stop antibiotics -Monitor renal function Thank you for the consult, we will sign off. Please call questions. Monalisa Park MD [facility] ([facility]) O: [phone] F: [phone] Subjective Date of service: 10/27/20 Interval history: Afebrile, normal white count. Covid negative. Normal procalcitonin. Blood cultures remain negative. Objective - Exam Narrative Exam: Physical Exam: Constitutional: Alert, cooperative. No acute distress Head, Ears, Nose: Normocephalic, atraumatic. Eyes: Conjunctivae/corneas clear. No icterus. No ptosis. Neck: Supple, no meningeal signs Oral: dentition fair, no thrush Cardiovascular: S1, S2 normal. Respiratory: Good air entry, clear to auscultation bilaterally GI: Soft, non-tender; bowel sounds normal. No peritoneal signs. Musculoskeletal: No pedal edema, no cyanosis. Skin: No rash or abscess Hem/Lymphatic: No palpable cervical or supraclavicular nodes. Psych: Mood ok. Affect normal Neurological: Awake, alert, oriented. No gross abnormality - Constitutional Vitals: Vital Signs Temp Pulse Resp BP Pulse Ox 97.3 F L 69 18 128/81 96 10/27/20 05:04 10/27/20 05:04 10/27/20 05:04 10/27/20 05:04 10/27/20 05:04 Temperature -Last 24 Hours Temperature 97.3 F Temperature 97.5 F Temperature 98.2 F Temperature 98.5 F - Labs CBC & Chem 7: 10/27/20 07:23 10/27/20 07:23 Labs: Abnormal lab results 10/27/20 10/27/20 Range/Units 07:23 07:23 RDW 12.5 L (13.2-15.2) % Seg Neutrophils % 72.4 H (40.0-70.0) % Seg Neutrophils # 7.8 H (1.8-7.7) K/mm3 Glucose 119 H (75-100) mg/dL Calcium 8.1 L (8.4-10.2) mg/dL
--- NOTE | 2020-10-27 15:26 | Discharge Summary ---
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 Hospitalization Condition: Stable Disposition: DC-01 TO HOME OR SELFCARE Time spent for discharge: 32 min Core Measure Documentation - Palliative Care Palliative Care/ Comfort Measures: Not Applicable - Core Measures Any of the following diagnoses?: none Exam - Constitutional Vitals: Temp Pulse Resp BP Pulse Ox 97.3 F L 69 18 128/81 96 10/27/20 05:04 10/27/20 05:04 10/27/20 05:04 10/27/20 05:04 10/27/20 05:04 General appearance: Present: no acute distress, well-nourished - EENT Eyes: Present: PERRL, EOM intact - Neck Neck: Present: supple, normal ROM - Respiratory Respiratory effort: normal Respiratory: bilateral: diminished, negative: rales, rhonchi, wheezing - Cardiovascular Rhythm: regular Heart Sounds: Present: S1 & S2 - Extremities Extremities: no ischemia, No edema - Abdominal General gastrointestinal: Present: soft, non-tender, non-distended, normal bowel sounds - Integumentary Integumentary: Present: clear, warm - Musculoskeletal Musculoskeletal: strength equal bilaterally - Psychiatric Psychiatric: appropriate mood/affect, cooperative - Neurologic Neurologic: CNII-XII intact, moves all extremities Plan Activity: advance as tolerated Diet: regular Special Instructions: smoking cessation Additional Instructions: Smoking cessation counseling, advised to quit tobacco use. If you have worsening symptoms contact MD or go to emergency room Follow up with: PRIMARY CARE,MD [Primary Care Provider] - 3-5 Days Prescriptions: guaiFENesin/CODEINE [Robitussin AC] 10 ml PO TID PRN 10 Days #1 bottle PRN Reason: Cough Azithromycin [Zithromax Z-BARBIE] 0 mg PO DAILY #1 pack Cetirizine HCl [ZyrTEC 10mg cap] 10 mg PO DAILY #10 capsule
[2020-10-27 18:57] VITALS: BP 150/91
== END 2020-10-27 18:33 | disposition home or self-care (01) ==
LOC: ED 13:20 → 3A 23:18 → 3B-SURG 10-26 23:36
PROVIDERS: ADMIT Internal Medicine Geriatric Medicine; ATTEND Internal Medicine
DX: J96.01 Acute respiratory failure with hypoxia (principal); Z20.822 Contact with and (suspected) exposure to COVID-19; J18.9 Pneumonia, unspecified organism; E66.9 Obesity, unspecified; R05 Cough; F17.210 Nicotine dependence, cigarettes, uncomplicated; Z68.30 Body mass index [BMI] 30.0-30.9, adult
CPT/HCPCS: 36415; 71046; 80048; 80053; 81001; 84145; 85025; 85610; 86850; 86900; 86901; 87040; 96365; 96366; 96368; 96372; 96375; 96376; 99291; G0378; J0456; J0696; J1100; J1170; J1650; J2270; J7030; U0003

== ENCOUNTER 2021-03-07 16:05 | Emergency (ER) | payer MEDICARE ==
--- NOTE | 2021-03-07 18:23 | Emergency Department Report ---
Blank Doc - Documentation Documentation: 45-year-old male that presents with near umbilical pain and swelling with nausea . Exam: Suspicious of incarcerated hernia. Unable to reduce. No signs or symptoms of gangrene on exam. 1- This is a initial triage assessment/medical screening only. Full assessment and work-up will be completed once the patient is in proper hospital gown, ED bed and in a private room setting. This initial assessment/diagnostic orders/clinical plan/ treatment(s) is/are subject to change based on pt's health status, clinical progression and re-assessment by fellow clinical providers in the ED. Further treatment and workup at subsequent clinical providers discretion. Patient/guardians urged not to elope from ED as their condition may be serious if not clinically assessed and managed. 2-labs
[2021-03-07 19:17] LABS: Alanine Aminotransferase 16 units/L (7-56); Albumin 3.8 g/dL (3.9-5); BUN/Creatinine Ratio 15; Blood Urea Nitrogen 20 mg/dL (9-20); Calcium 8.6 mg/dL (8.4-10.2); Hemolysis Index 8
[2021-03-07 19:22] LABS: Basophils # (Auto) 0.1 K/mm3 (0.0-0.1); Basophils % (Auto) 0.9 % (0.0-1.8); Eosinophils # (Auto) 0.2 K/mm3 (0.0-0.4); Eosinophils % (Auto) 2.2 % (0.0-4.3); Hemoglobin 16.5 gm/dl (11.8-15.2); Lymphocytes # (Auto) 1.9 K/mm3 (1.2-5.4); Lymphocytes % (Auto) 22.1 % (13.4-35.0); Mean Corpuscular HGB Conc 35 % (32-34); Mean Corpuscular Volume 86 fl (84-94); Monocytes # (Auto) 0.5 K/mm3 (0.0-0.8); Monocytes % (Auto) 6.1 % (0.0-7.3); Platelet Count 197 K/mm3 (140-440); Red Blood Count 5.59 M/mm3 (3.65-5.03); Red Cell Distribution Width 12.7 % (13.2-15.2)
--- NOTE | 2021-03-07 21:27 | Emergency Department Report ---
ED Abdominal Pain HPI - General Chief Complaint: Abdominal Pain Stated Complaint: KNOT IN CENTER OF ABDOMIN Time Seen by Provider: 03/07/21 18:19 Source: patient Mode of arrival: Ambulatory Limitations: No Limitations - History of Present Illness Initial Comments: 45-year-old male visit emerge department complaining of a central abdominal pain with a suspicion of having a hernia that has been waxing and waning over the last 2 days states when he puts the shoe that pushes the area the mass does not change in size. Ports no nausea, no vomiting hemoptysis hematemesis no no fevers, chills, sweats. No rash MD Complaint: abdominal pain Location: periumbilical Radiation: none Migration to: no migration Severity: moderate Quality: dull Consistency: constant Improves With: nothing Worsens With: movement Associated Symptoms: denies: vomiting, diarrhea, dysuria, hematemesis, hematuria, syncope - Related Data Previous Rx's Medication Instructions Recorded Last Taken Type Nicotine [Habitrol] 14 mg TD DAILY #30 patch 10/27/20 Unknown Rx guaiFENesin/CODEINE [Robitussin AC] 10 ml PO TID PRN 10 Days #1 bottle 10/27/20 Unknown Rx Azithromycin [Zithromax Z-BARBIE] 0 mg PO DAILY #1 pack 01/27/21 Unknown Rx Benzonatate [Tessalon Perles] 100 mg PO Q8HR #30 capsule 01/27/21 Unknown Rx Cetirizine HCl [ZyrTEC 10mg cap] 10 mg PO DAILY #30 capsule 01/27/21 Unknown Rx Ibuprofen [Motrin] 600 mg PO Q8H PRN #20 tablet 01/27/21 Unknown Rx Prednisone [predniSONE 10 mg 10 mg PO .TAPER #21 tab.ds.pk 01/27/21 Unknown Rx (6-Day Pack, 21 Tabs)] Ketorolac [Toradol] 10 mg PO Q6H PRN #10 tablet 03/08/21 Unknown Rx Ondansetron [Zofran Odt] 4 mg PO Q8HR #20 tab.rapdis 03/08/21 Unknown Rx Allergies Allergy/AdvReac Type Severity Reaction Status Date / Time No Known Allergies Allergy Verified 10/25/20 13:36 ED Review of Systems ROS: Stated complaint: KNOT IN CENTER OF ABDOMIN Other details as noted in HPI Comment: All other systems reviewed and negative ED Past Medical Hx - Past Medical History Previous Medical History?: Yes Hx Sickle Cell Disease: No Hx Seizures: Yes Hx Asthma: Yes Hx Tuberculosis: No Hx HIV: No - Surgical History Past Surgical History?: Yes Additional Surgical History: Left hip, left knee, nasal - Social History Smoking Status: Never Smoker Substance Use Type: None - Medications Home Medications: Home Medications Medication Instructions Recorded Confirmed Last Taken Type Nicotine [Habitrol] 14 mg TD DAILY #30 patch 10/27/20 Unknown Rx guaiFENesin/CODEINE [Robitussin AC] 10 ml PO TID PRN 10 Days #1 bottle 10/27/20 Unknown Rx Azithromycin [Zithromax Z-BARBIE] 0 mg PO DAILY #1 pack 01/27/21 Unknown Rx Benzonatate [Tessalon Perles] 100 mg PO Q8HR #30 capsule 01/27/21 Unknown Rx Cetirizine HCl [ZyrTEC 10mg cap] 10 mg PO DAILY #30 capsule 01/27/21 Unknown Rx Ibuprofen [Motrin] 600 mg PO Q8H PRN #20 tablet 01/27/21 Unknown Rx Prednisone [predniSONE 10 mg 10 mg PO .TAPER #21 tab.ds.pk 01/27/21 Unknown Rx (6-Day Pack, 21 Tabs)] Ketorolac [Toradol] 10 mg PO Q6H PRN #10 tablet 03/08/21 Unknown Rx Ondansetron [Zofran Odt] 4 mg PO Q8HR #20 tab.rapdis 03/08/21 Unknown Rx ED Physical Exam - General Limitations: No Limitations General appearance: alert, in no apparent distress - Head Head exam: Present: atraumatic, normocephalic - Eye Eye exam: Present: normal appearance, PERRL, EOMI Pupils: Present: normal accommodation - ENT ENT exam: Present: normal exam, normal orophraynx, mucous membranes moist, TM's normal bilaterally - Neck Neck exam: Present: normal inspection, full ROM - Respiratory Respiratory exam: Present: normal lung sounds bilaterally. Absent: respiratory distress, wheezes, rales, chest wall tenderness, accessory muscle use - Cardiovascular Cardiovascular Exam: Present: regular rate, normal rhythm. Absent: systolic murmur, diastolic murmur, rubs, gallop - GI/Abdominal GI/Abdominal exam: Present: soft, tenderness (The central abdomen with a a ventral hernia-like mass present. Unable to reduce on palpation. Pulses 2+ bowel sounds are normal no Hunt sign no Rovsing no Dunlap Bazzi), normal bowel sounds. Absent: guarding, rebound - Rectal Rectal exam: Present: deferred - Extremities Exam Extremities exam: Present: normal inspection, normal capillary refill - Back Exam Back exam: Present: normal inspection. Absent: CVA tenderness (R), CVA tenderness (L) - Neurological Exam Neurological exam: Present: alert, oriented X3, CN II-XII intact - Psychiatric Psychiatric exam: Present: normal affect, normal mood. Absent: anxious, flat affect - Skin Skin exam: Present: warm, dry, intact, normal color. Absent: rash ED Course Vital Signs 03/07/21 18:13 Temperature 98.7 F Pulse Rate 74 Respiratory 18 Rate Blood Pressure 146/95 [Right] O2 Sat by Pulse 99 Oximetry ED Medical Decision Making - Lab Data Result diagrams: 03/07/21 18:29 03/07/21 18:29 - Radiology Data Radiology results: report reviewed [address] [place] [address] Cat Scan Report Signed Patient: RADHA WATSON MR#: [id number] : 1975 Acct:[id number] Age/Sex: 45 / M ADM Date: 03/07/21 Loc: ED Attending Dr: Ordering Physician: TIO BEYER Date of Service: 03/07/21 Procedure(s): CT abdomen pelvis w con Accession Number(s): [id number] cc: TIO BEYER CT ABDOMEN AND PELVIS WITH IV CONTRAST INDICATION: Abdominal pain and mass. Tenderness. TECHNIQUE: Following the administration of intravenous contrast, multiple axial CT images of the abdomen and pelvis were acquired. Sagittal and coronal reformats were obtained. All CT performed at this facility utilize dose reduction techniques including automated exposure control, iterative reconstruction and weight based dosing when appropriate to reduce patient radiation dose to as low as reasonably achievable. COMPARISON: None FINDINGS: Limited imaging of the bilateral lung bases demonstrates no acute abnormality. ABDOMEN: The liver, gallbladder, spleen, pancreas, bilateral adrenal glands and bilateral kidneys show no evidence of acute abnormality. The abdominal aorta is normal in caliber. There is no evidence of bowel obstruction or free fluid. The appendix is not clearly identified but no pericecal inflammatory changes are noted. PELVIS: No free fluid is seen within the pelvis. The urinary bladder appears normal. BONES AND SOFT TISSUES: Evaluation of bony structures demonstrates previous surgical stabilization of the left hip. Evaluation of soft tissue structures demonstrates a small midline anterior abdominal wall hernia located approximately 6.4 cm above the level of the umbilicus. This contains a small amount of omentum measuring approximately 2.4 x 1.7 cm. There is mild associated inflammatory change. IMPRESSION: 1. Small midline anterior abdominal wall hernia containing a small portion of the omentum with associated inflammatory change. There is no evidence to suggest bowel obstruction. Signer Name: Jennie Cain MD Signed: 03/07/2021 9:50 PM Workstation Name: [id number] Transcribed By: EB Dictated By: Jennie Cain MD Electronically Authenticated By: Jennie Cain MD Signed Date/Time: 03/07/212149 DD/ 44 TD/TT: Print Cancel - Medical Decision Making This patient presents with abdominal pain of unclear etiology but likely related to a hernia. A CT scan was performed to evaluate for potential causes of the abdominal pain, however, neither the clinical exam nor the CT has identified an emergent etiology for the abdominal pain. Specifically, given the benign exam, the laboratory studies, and unremarkable CT, I have a very low suspicion for appendicitis, ischemic bowel, bowel perforation, or any other life threatening disease. I have discussed with the patient the level of uncertainty with und ifferentiated abdominal pain and clearly explained the need to follow-up as noted on the discharge instructions, or return to the Emergency Department immediately if the pain worsens, develops fever, persistent and uncontrollable vomiting, or for any new symptoms or concerns. Critical care attestation.: If time is entered above; I have spent that time in minutes in the direct care of this critically ill patient, excluding procedure time. ED Disposition Clinical Impression: Abdominal pain, Ventral hernia Disposition: DC-01 TO HOME OR SELFCARE Is pt being admited?: No Does the pt Need Aspirin: No Condition: Stable Instructions: Abdominal Pain, Adult, [id number], Ventral Hernia Prescriptions: Ketorolac [Toradol] 10 mg PO Q6H PRN #10 tablet PRN Reason: Pain Ondansetron [Zofran Odt] 4 mg PO Q8HR #20 tab.rapdis Referrals: PRIMARY CARE, [Primary Care Provider] - 3-5 Days DORCAS PATEL DO [Staff Physician] - 3-5 Days ARY SAMAYOA MD [Staff Physician] - 3-5 Days
--- NOTE | 2021-03-07 21:55 | Cat Scan Report ---
CT ABDOMEN AND PELVIS WITH IV CONTRAST INDICATION: Abdominal pain and mass. Tenderness. TECHNIQUE: Following the administration of intravenous contrast, multiple axial CT images of the abdo men and pelvis were acquired. Sagittal and coronal reformats were obtained. All CT performed at this facility utilize dose reduction techniques including automated exposure control, iterative reconstru ction and weight based dosing when appropriate to reduce patient radiation dose to as low as reasonab ly achievable. COMPARISON: None FINDINGS: Limited imaging of the bilateral lung bases demonstrates no acute abnormality. ABDOMEN: The liver, gallbladder, spleen, pancreas, bilateral adrenal glands and bilateral kidneys show no evid ence of acute abnormality. The abdominal aorta is normal in caliber. There is no evidence of bowel ob struction or free fluid. The appendix is not clearly identified but no pericecal inflammatory changes are noted. PELVIS: No free fluid is seen within the pelvis. The urinary bladder appears normal. BONES AND SOFT TISSUES: Evaluation of bony structures demonstrates previous surgical stabilization of the left hip. Evaluatio n of soft tissue structures demonstrates a small midline anterior abdominal wall hernia located appro ximately 6.4 cm above the level of the umbilicus. This contains a small amount of omentum measuring a pproximately 2.4 x 1.7 cm. There is mild associated inflammatory change. IMPRESSION: 1. Small midline anterior abdominal wall hernia containing a small portion of the omentum with associ ated inflammatory change. There is no evidence to suggest bowel obstruction. Signer Name: Jennie Cain MD Signed: 03/07/2021 9:50 PM Workstation Name: [id number]
[2021-03-08 07:25] VITALS: BP 150/95
== END 2021-03-08 01:00 | disposition home or self-care (01) ==
LOC: ED 16:05
DX: K43.9 Ventral hernia without obstruction or gangrene (principal); R10.33 Periumbilical pain; R56.9 Unspecified convulsions; J45.909 Unspecified asthma, uncomplicated; Z98.890 Other specified postprocedural states; Z79.1 Long term (current) use of non-steroidal anti-inflammatories (NSAID); Z79.2 Long term (current) use of antibiotics; Z79.899 Other long term (current) drug therapy
CPT/HCPCS: 36415; 74177; 80053; 85025; 99284; Q9967

== ENCOUNTER 2021-05-07 18:07 | Emergency (ER) | payer MEDICARE | END 2021-05-09 04:33 | LOC: ED 18:07 | DX: R50.9 Fever, unspecified (principal); Z53.21 Procedure and treatment not carried out due to patient leaving prior to being seen by health care provider ==

== ENCOUNTER 2021-09-04 17:23 | Emergency (ER) | payer MEDICARE ==
[2021-09-04] MEDS ORDERED: predniSONE 50 MG TAB PO ONE (18:31)
[2021-09-04] MEDS ORDERED: IPRATROPIUM/ALBUTEROL SULFATE 3 ML AMPUL.NEB IH ONE (18:31)
--- NOTE | 2021-09-04 18:44 | Emergency Department Report ---
ED Asthma HPI - General Chief Complaint: Upper Respiratory Infection Stated Complaint: COUGH AND CHEST CONGESTION Time Seen by Provider: 09/04/21 18:16 Source: patient Mode of arrival: Ambulatory Limitations: No Limitations - History of Present Illness Initial Comments: 46-year-old male with a past medical history of hypertension and asthma presents to the ER today with complaints of a productive cough which he has been having for the past 3 weeks. Patient states that when the symptoms first started he went to [facility] for evaluation. This was around August 20. He states that he was diagnosed with COVID-19, and upper respiratory infection and he was discharged home with prescription for Augmentin, Tessalon Perles, prednisone taper and an albuterol inhaler. Patient states that he has taken all of the antibiotics, the prednisone, as well as the cough medication but he feels like his symptoms are not improving. He states that now his cough is with green- yellow sputum and he is concerned that he may have pneumonia. He states that he had pneumonia last year and was admitted for 4 days. He reports associated shortness of breath, runny nose and nasal congestion. He reports intermittent wheezing. He denies any fever or chills in the past 3 weeks. He denies any chest pain. He states that he has been using his albuterol MDI 3 times a day. He states that his never been admitted just for asthma exacerbation. He also requesting a refill on his blood pressure medication. He states that he has been out for 1 month. His next appointment with his PCP is not until middle of this month. MD Complaint: other (Cough) -: week(s) (3) - Related Data Previous Rx's Medication Instructions Recorded Last Taken Type Nicotine [Habitrol] 14 mg TD DAILY #30 patch 10/27/20 Unknown Rx Azithromycin [Zithromax Z-BARBIE] 0 mg PO DAILY #1 pack 01/27/21 Unknown Rx Benzonatate [Tessalon Perles] 100 mg PO Q8HR #30 capsule 09/04/21 Unknown Rx Cetirizine HCl [ZyrTEC 10mg cap] 10 mg PO DAILY #30 capsule 09/04/21 Unknown Rx amLODIPine 10 mg PO DAILY #30 tab 09/04/21 Unknown Rx predniSONE [Deltasone] 50 mg PO QDAY #5 tab 09/04/21 Unknown Rx Allergies Allergy/AdvReac Type Severity Reaction Status Date / Time No Known Allergies Allergy Verified 10/25/20 13:36 ED Review of Systems ROS: Stated complaint: COUGH AND CHEST CONGESTION Other details as noted in HPI Comment: All other systems reviewed and negative Constitutional: denies: chills, fever Eyes: denies: eye pain, eye discharge, vision change ENT: denies: ear pain, throat pain, dental pain, hearing loss, epistaxis, congestion Respiratory: cough, shortness of breath. denies: orthopnea Cardiovascular: denies: chest pain, palpitations, dyspnea on exertion, edema, syncope, paroxysmal nocturnal dyspnea Gastrointestinal: denies: abdominal pain, nausea, diarrhea, constipation, hematemesis, melena, hematochezia Genitourinary: denies: urgency, dysuria, frequency, hematuria, discharge, testicular pain, testicular mass Musculoskeletal: denies: back pain, joint swelling, arthralgia Skin: denies: rash, lesions, change in color, change in hair/nails, pruritus Neurological: headache. denies: numbness, paresthesias, confusion, abnormal gait, vertigo Psychiatric: denies: anxiety, depression Hematological/Lymphatic: denies: easy bleeding, easy bruising ED Past Medical Hx - Past Medical History Hx Sickle Cell Disease: No Hx Seizures: Yes Hx Asthma: Yes Hx Tuberculosis: No Hx HIV: No - Surgical History Additional Surgical History: Left hip, left knee, nasal - Social History Smoking Status: Never Smoker Substance Use Type: None - Medications Home Medications: Home Medications Medication Instructions Recorded Confirmed Last Taken Type Nicotine [Habitrol] 14 mg TD DAILY #30 patch 10/27/20 Unknown Rx Azithromycin [Zithromax Z-BARBIE] 0 mg PO DAILY #1 pack 01/27/21 Unknown Rx Benzonatate [Tessalon Perles] 100 mg PO Q8HR #30 capsule 09/04/21 Unknown Rx Cetirizine HCl [ZyrTEC 10mg cap] 10 mg PO DAILY #30 capsule 09/04/21 Unknown Rx amLODIPine 10 mg PO DAILY #30 tab 09/04/21 Unknown Rx predniSONE [Deltasone] 50 mg PO QDAY #5 tab 09/04/21 Unknown Rx ED Physical Exam - General Limitations: No Limitations General appearance: alert, in no apparent distress - Head Head exam: Present: atraumatic, normocephalic - Eye Eye exam: Present: normal appearance, PERRL, EOMI Pupils: Present: normal accommodation - ENT ENT exam: Present: normal exam, mucous membranes moist - Neck Neck exam: Present: normal inspection, full ROM. Absent: meningismus - Respiratory Respiratory exam: Present: normal lung sounds bilaterally. Absent: respiratory distress, wheezes, rales, rhonchi, chest wall tenderness - Cardiovascular Cardiovascular Exam: Present: regular rate, normal rhythm, normal heart sounds - GI/Abdominal GI/Abdominal exam: Present: soft. Absent: distended, tenderness, guarding, rebound - Extremities Exam Extremities exam: Present: full ROM, normal capillary refill. Absent: normal inspection, calf tenderness - Neurological Exam Neurological exam: Present: alert, oriented X3, CN II-XII intact, normal gait - Psychiatric Psychiatric exam: Present: normal affect, normal mood - Skin Skin exam: Present: intact ED Course Vital Signs 09/04/21 17:27 Temperature 98.7 F Pulse Rate 81 Respiratory 17 Rate Blood Pressure 188/112 O2 Sat by Pulse 98 Oximetry ED Medical Decision Making - Radiology Data Radiology results: report reviewed Patient: RADHA WATSON MR#: [id number] : 1975 Acct:[id number] Age/Sex: 46 / M ADM Date: 09/04/21 Loc: ED Attending Dr: Ordering Physician: SARA BELL Date of Service: 09/04/21 Procedure(s): XR chest routine 2V Accession Number(s): [id number] cc: SARA BELL Fluoro Time In Minutes: CHEST 2 VIEWS INDICATION / CLINICAL INFORMATION: cough x 3 weeks/asthma. FINDINGS: SUPPORT DEVICES: None. HEART / MEDIASTINUM: No significant abnormality. LUNGS / PLEURA: No significant pulmonary or pleural abnormality. No pneumothorax. ADDITIONAL FINDINGS: No significant additional findings. IMPRESSION: 1. No acute findings. Signer Name: Jann Cardona MD Signed: 09/04/2021 6:59 PM Workstation Name: [id number] Transcribed By: BC Dictated By: Jann Cardona MD Electronically Authenticated By: Jann Cardona MD Signed Date/Time: 09/04/211858 DD/ 58 TD/TT: - Medical Decision Making Chest x-ray shows nothing acute. Patient is currently resting comfortably in the room on his phone. He is not in any significant pain or respiratory distress. No significant wheezing on exam. Emergent neb treatment not indicated at this time. No meningeal signs on exam. He appears well-hydrated. Abdomen soft and nontender. No lower extremity swelling or calf pain. His vital signs are all within normal limits including the fact that he is not hypoxic, not tachycardic, afebrile. Discussed results with patient. Suspect his symptoms are related to URI/asthmatic bronchitis from his viral COVID-19. Discussed treatment plan with patient. Recommend follow-up with primary care doctor. Patient expressed understanding and asked agree with plan. Patient stable at time of discharge. - Differential Diagnosis Pneumonia, severe asthma exacerbation, Covid illness Critical care attestation.: If time is entered above; I have spent that time in minutes in the direct care of this critically ill patient, excluding procedure time. ED Disposition Clinical Impression: Bronchitis due to COVID-19 virus, Asthma, COVID-19 virus infection, Uncontrolled hypertension, Medication refill Disposition: HOME / SELF CARE / HOMELESS Is pt being admited?: No Does the pt Need Aspirin: No Condition: Stable Instructions: COVID-19: How to Protect Yourself and Others - CDC, Asthma, Adult, [id number], Acute Bronchitis, Adult, Prevent the Spread of COVID-19 if You Are Sick - CDC, Asthma (ED), Chronic Bronchitis (ED), Hypertension (ED) Additional Instructions: Your symptoms are still likely related to COVID-19. Chest x-ray does not suggest pneumonia. I recommend that you do albuterol MDI every 4-6 hours as needed for any coughing spells, shortness of breath or wheezing. Take the prednisone as prescribed. Take the Tessalon Perles and zyrtec as prescribed for cough. Continue to drink lots of fluids. Take Tylenol and or ibuprofen from [id number] to help with any pain or fever. Take the amlodipine as prescr ibed for your blood pressure. I do recommend that she get a pulse ox vomiting from [id number], to monitor your oxygen's status at home. If your oxygen drops persistently under 93% with worsening symptoms return immediately to the ER. Otherwise keep your appointment with your primary care doctor for the . Prescriptions: amLODIPine 10 mg PO DAILY #30 tab predniSONE [Deltasone] 50 mg PO QDAY #5 tab Benzonatate [Tessalon Perles] 100 mg PO Q8HR #30 capsule Cetirizine HCl [ZyrTEC 10mg cap] 10 mg PO DAILY #30 capsule Referrals: PRIMARY CARE, [Primary Care Provider] - 3-5 Days Forms: Work/School Release Form(ED) Time of Disposition: 19:51
--- NOTE | 2021-09-04 19:04 | XRay Report ---
CHEST 2 VIEWS INDICATION / CLINICAL INFORMATION: cough x 3 weeks/asthma. FINDINGS: SUPPORT DEVICES: None. HEART / MEDIASTINUM: No significant abnormality. LUNGS / PLEURA: No significant pulmonary or pleural abnormality. No pneumothorax. ADDITIONAL FINDINGS: No significant additional findings. IMPRESSION: 1. No acute findings. Signer Name: Jann Cardona MD Signed: 09/04/2021 6:59 PM Workstation Name: [id number]
[2021-09-04 20:28] VITALS: BP 193/116
== END 2021-09-04 20:20 | disposition home or self-care (01) ==
LOC: ED 17:23
DX: U07.1 COVID-19 (principal); J45.909 Unspecified asthma, uncomplicated; I10 Essential (primary) hypertension; Z76.0 Encounter for issue of repeat prescription; Z98.890 Other specified postprocedural states
CPT/HCPCS: 71046; 99283; J7512